=== PATIENT | female | born 1950 | race Caucasian/White ===

== ENCOUNTER 2017-03-02 09:00 | Inpatient (IN) | payer MEDICARE, OTHER ==
[~2017-03-02] VITALS: Ht 172.7 cm; Wt 81.6 kg
--- NOTE | ~2017-03-02 | PA ---
Unit #: [id number] #: [id number] Patient: TOBIAS SULTANA [id number] [facility] [address] [place] [address] [id number] I MR#: [id number] NAME: TOBIAS SULTANA ROOM: P1 Age: 66 Sex: F Admission Date: 03/02/2017 : 1950 Date of Assessment: 03/02/2017 Attending Physician: Naa Islas M.D. Admitting Physician: Naa Islas M.D. Primary Care Physician: Primary Care Physician No PSYCHIATRIC ASSESSMENT DATE OF SERVICE 03/02/2017. IDENTIFYING DATA Ms. Sultana is a 66-year-old disabled white female, who is a resident of [place], [place], and was self-referred to the hospital on a voluntary basis. CHIEF COMPLAINT "I've been taking way too much pain pills." HISTORY OF PRESENT ILLNESS Ms. Sultana is a 66-year-old white female, who was self-referred to the hospital wanting to get detox from opioids as she stated that she has been seeing her physician on an outpatient basis, who had her on five 30 mg pills a day and she was taking 150 mg of oxycodone a day and then they decided to cut it down all the way from 150 to 45 mg a day and she could not handle it "they did not tell me, I don't have any medication. I've been taking 15 mg of oxycodone for a year, I was on 30 mg five times a day. In January, they changed me from 30 to 15 mg every 8 hours, it was not strong enough and I took more than I should and that is why I'm out of it." The patient reports that she started taking the oxycodone after knee surgery and she was prescribed 30 mg four or five times a day after knee surgery for 2 years and was treated by her primary care physician. [facility] 5 to 6 years ago and was given 30 mg five times a day. In 01/2017, the Pain Clinic reduced her oxycodone to 15 mg every 8 hours, "I got to have something." The patient's confirmed the patient's story and stated that the [facility] Clinic stated that she had too much morphine in her system and although she does not take morphine, the [facility] Clinic would not give a reason for discontinuing her pain medication. However, she reports that she found her life revolving around chasing pain pills, particularly when they were cut down by the clinic and they started running out before time and realized that she has a problem and now she wants to get off them completely and does report some depression, anxiety, and irritability, but denies any suicidal ideations, intent, or plan. SUBSTANCE ABUSE HISTORY The patient reports history of prescription opioid addiction, but denies any other substance abuse. PAST PSYCHIATRIC HISTORY The patient has not had any prior inpatient or outpatient psychiatric treatment, and review of the medical records indicate that she is Unit #: [id number] #: [id number] Patient: TOBIAS SULTANA currently not active in any treatment program, is not seeing a psychiatrist, and is not taking any psychotropic medications. PAST MEDICAL HISTORY Hypertension, hypothyroidism, and diabetes mellitus. ALLERGIES Contrast dye. PERSONAL AND SOCIAL HISTORY A 66-year-old white female, who reports that she is and disabled and lives at home with her and has fairly decent social support system. MENTAL STATUS EXAMINATION An elderly white female, who was casually dressed with fair personal hygiene, appears to be in no acute distress or discomfort. She was awake and alert on interaction with intact orientation to time, place, and person. Her mood anxious and depressed with a congruent affect. Her speech was slow and goal directed. She denies any suicidal or homicidal ideations and also denies also any auditory or visual hallucinations. Her insight and judgment remain significantly impaired. DIAGNOSTIC IMPRESSION Psychiatric: Opioid dependence, moderate, in acute withdrawals and opioid-induced mood disorder. Medical: Hypertension, diabetes mellitus, hypothyroidism, and chronic pain. Stressors: Moderate psychosocial stressors. TREATMENT PLAN 1. The patient has presented with a history of substance abuse and dependence and has been decompensating and will need inpatient hospitalization for detoxification, safety, and stabilization. We will start her back on her home medications. We will adjust the medications and monitor response. 2. Safe, structured, and nourishing environment will be provided. ESTIMATED LENGTH OF STAY 5 to 7 days. ABILITY TO HELP SELF Limited. WILLINGNESS TO HELP SELF The patient appears to be willing to help self. STRENGTHS 1. Communicative. 2. Cooperative. PROBLEMS Chronic dysphoric symptoms. DISCHARGE CRITERIA This will be contingent upon the patient's ability to show resolution of her depression and anxiety and her ability to stay safe to herself, particularly after discharge from the hospital. Unit #: [id number] #: [id number] Patient: TOBIAS SULTANA Dictated by... Geoff Hurley/modl TD: 03/03/2017 23:20 JOB #: [id number] PSYCHIATRIC ASSESSMENT Page 1 of 1 X Naa Islas MD X PSYCHIATRIC ASSESSMENT
--- NOTE | ~2017-03-02 | CO ---
Unit #: [id number] #: [id number] Patient: TOBIAS SULTANA [id number] [facility] [address] [place] [address] [id number] MR#: [id number] NAME: TOBIAS SULTANA ROOM: [facility] Age: 66 Sex: F Admission Date: 03/02/2017 : 1950 Attending Physician: Naa Islas M.D. Primary Care Physician: Primary Care Physician No Consultation Date: 03/03/2017 CONSULTATION REPORT ORDERING PROVIDER Dr. Islas. REASON FOR CONSULT Pain. SUBJECTIVE The patient reports that she has a long history of both back and knee pain. She is at [facility], because of her addiction to oxycodone. She is requesting pain relief without using narcotic medication. She has used ibuprofen and Tylenol with some relief. OBJECTIVE Of note, the patient is both diabetic and hypertensive. There is a concern about kidney functioning with high doses of ibuprofen long-term. She is currently on gabapentin and has Tylenol ordered every 4 hours. ASSESSMENT Chronic pain. PLAN Continue the Tylenol and gabapentin and change ibuprofen to Mobic once daily. Continue to monitor. Dictated by... Yasir Cota/fariba TD: 03/04/2017 02:20 JOB #: [id number] CONSULTATION REPORT Page 1 of 1 X MATT MYERS APRN CONSULTATION REPORT
--- NOTE | ~2017-03-02 | PN ---
Unit #: [id number] #: [id number] Patient: TOBIAS DURAN [id number] [facility] [address] [place] [address] [id number] I MR#: [id number] NAME: TOBIAS DURAN ROOM: [facility] Age: 66 Sex: F Admission Date: 03/02/2017 : 1950 Attending Physician: Naa Islas M.D. Admitting Physician: Naa Islas M.D. Primary Care Physician: Primary Care Physician Lucy HANNAH NOTES DATE 03/05/2017 DISCUSSION Ms. Duran is a 66-year-old white female who was seen today and chart was reviewed and case was discussed with the staff. She has been anxious, withdrawn and rather seclusive to herself. Meanwhile, she has been cooperative with treatment recommendations as she has been taking the medications and tolerating them fairly well with no reported side effects. MENTAL STATUS EXAMINATION An elderly white female who was casually dressed with fair personal hygiene, appears to be in no acute distress or discomfort. She was awake and alert with impaired attention and concentration. Her mood was anxious with congruent affect. She denies any suicidal or homicidal ideations. Her insight and judgement remains slightly impaired. TREATMENT PLAN 1. We will continue her on her current treatment protocol. We will monitor her response to the medications and make further adjustments as needed. 2. We will continue to follow up. Dictated by... Geoff Hurley/filemon TD: 03/06/2017 03:49 JOB #: [id number] Unit #: [id number] #: [id number] Patient: TOBIAS DURAN PROGRESS NOTES Page 1 of 1 X Naa Islas MD PROGRESS NOTE
--- NOTE | ~2017-03-02 | PN ---
Unit #: [id number] #: [id number] Patient: TOBIAS DURAN [id number] [facility] [address] [place] [address] [id number] I MR#: [id number] NAME: TOBIAS DURAN ROOM: [facility] Age: 66 Sex: F Admission Date: 03/02/2017 : 1950 Attending Physician: Naa Islas M.D. Admitting Physician: Naa Islas M.D. Primary Care Physician: Primary Care Physician Lucy HANNAH NOTES DATE March 03, 2017 DISCUSSION Ms. Duran is a 66-year-old white female, with opiate dependence, who was seen today and chart was reviewed and the case was discussed with the staff. She has been anxious, withdrawn, and seclusive to herself and describes herself to be in distress and discomfort. Meanwhile, she has been cooperative with the treatment recommendations and she has been taking the medications and tolerating them fairly well with no reported side effects. MENTAL STATUS EXAMINATION An elderly white female, who was casually dressed with fair personal hygiene and appears to be in slight distress and discomfort. She was awake and alert with impaired attention and concentration. Her mood is anxious with a congruent affect. Her speech is slow and tangential. Her thought processes are disorganized with some looseness of associations and flight of ideas. Her insight and judgment remain significantly impaired. TREATMENT PLAN 1. We will continue her on her current medications and treatment protocol, and will monitor her response to the medications, and make further adjustments as needed. 2. We will continue to followup. Dictated by... Geoff Hurley/bret TD: 03/04/2017 09:12 JOB #: [id number] Unit #: [id number] #: [id number] Patient: TOBIAS DURAN PROGRESS NOTES Page 1 of 1 X Naa Islas MD PROGRESS NOTE
--- NOTE | ~2017-03-02 | DS ---
Unit #: [id number] #: [id number] Patient: TOBIAS SULTANA [id number] [facility] [address] [place] [address] [id number] I MR#: [id number] NAME: TOBIAS SULTANA ROOM: 79 Age: 66 Sex: F Admission Date: 03/02/2017 : 1950 Discharge Date: 03/06/2017 Attending Physician: Naa Islas M.D. Primary Care Physician: Primary Care Physician No DISCHARGE SUMMARY IDENTIFYING DATA Ms. Sultana is a 66-year-old , disabled, white female, who is a resident of [place], [place], and was self-referred to the hospital on voluntary basis with a chief complaint of "I've been taking too much pain pills." DISCHARGE DIAGNOSES Psychiatric: Opioid dependence, moderate and acute withdrawals; opioid-induced mood disorder. Medical: Hypertension, diabetes mellitus, hypothyroidism, chronic pain. Stressors: Mild psychosocial stressors. HISTORY OF PRESENT ILLNESS Please see initial psychiatric evaluation for details. PAST PSYCHIATRIC HISTORY Please see initial psychiatric evaluation for details. PAST MEDICAL HISTORY Please see initial psychiatric evaluation for details. HOSPITAL COURSE The patient [facility] and was oriented to the hospital environment. Routine p.r.n. medications were initiated, and she was started back on her home medications and detox protocol was initiated as well. She was seen to be showing rather poor insight into situation and poor motivation as she was constantly complaining of being in pain and making statements that she does not know how she is going to handle her pain without the pain medications; however, she was able to come out of the detox without any complications and then was rather pushing to leave and was denying any suicidal ideations, intent, or plan and as such, she was not meeting criteria for further inpatient psychiatric hospitalizations and as such, it was decided that she will be discharged home and will continue treatment on an outpatient basis. DISCHARGE MEDICATIONS None. DISCHARGE CONDITION Stable. PROGNOSIS Fair. Unit #: [id number] #: [id number] Patient: TOBIAS SULTANA Dictated by... Geoff Hurley/iselal TD: 03/06/2017 06:56 JOB #: [id number] DISCHARGE SUMMARY Page 1 of 1 X Naa Islas MD DISCHARGE SUMMARY
--- NOTE | ~2017-03-02 | PN ---
Unit #: [id number] #: [id number] Patient: TOBIAS DURAN [id number] [facility] [address] [place] [address] [id number] I MR#: [id number] NAME: TOBIAS DURAN ROOM: [facility] Age: 66 Sex: F Admission Date: 03/02/2017 : 1950 Attending Physician: Naa Islas M.D. Admitting Physician: Naa Islas M.D. Primary Care Physician: Primary Care Physician Lucy HANNAH NOTES DATE 03/04/2017 DISCUSSION Ms. Duran is a 66-year-old white female with opioid dependence who was seen today and chart was reviewed and case was discussed with the staff. She had a rough night with increasing pain, anxiety, restlessness. On approach this morning, the patient stated that she does not want to be here and that she wants to leave but that she knows that she needs to be and she has been taking the detox medication but does not feel that she is doing much better as she has been complaining of poor sleep, anxiety, restlessness, muscle aches and pains and feeling uncomfortable and describes herself to be in distress or discomfort though seems to be polite and pleasant and maintaining a positive attitude. MENTAL STATUS EXAMINATION An elderly white female who was casually dressed with fair personal hygiene, appears to be in no acute distress or discomfort. She was awake and alert with impaired attention and concentration. Her mood was anxious with a congruent affect. Her speech was slow and tangential. Her thought processes were disorganized with some looseness of associations. Her insight and judgement remains significantly impaired. TREATMENT PLAN 1. We will continue her on her current medications and treatment protocol. We will monitor her response to the medication and make further adjustments as needed. 2. We will continue to follow up. Dictated by... Geoff Hurley/filemon TD: 03/05/2017 04:24 JOB #: [id number] Unit #: [id number] #: [id number] Patient: TOBIAS DURAN BRIELLE NOTES Page 1 of 1 X Naa Islas MD PROGRESS NOTE
--- NOTE | ~2017-03-02 | HP ---
Unit #: [id number] #: [id number] Patient: TOBIAS SULTANA [id number] [place] [address] [id number] I MR#: [id number] NAME: TOBIAS SULTANA ROOM: P179 Age: 66 Sex: F Admission Date: 03/02/2017 : 1950 Attending Physician: Naa Islas M.D. Admitting Physician: aNa Islas M.D. Primary Care Physician: Primary Care Physician No HISTORY AND PHYSICAL HISTORY OF PRESENT ILLNESS The patient is a 66-year-old female admitted to [facility] on 03/02/2017 to withdrawal from oxycodone. PAST MEDICAL HISTORY 1. Diabetes. 2. Hypertension. 3. Back pain. 4. Knee pain. PAST SURGICAL HISTORY 1. Knee surgery. 2. Hysterectomy. 3. Tonsillectomy. SOCIAL HISTORY She is retired from [employer]. She lives with her . She smokes one pack of cigarettes daily. Uses oxycodone 30 mg five times per day. FAMILY MEDICAL HISTORY Noncontributory. ALLERGIES Iodine. CURRENT MEDICATIONS Please see list of home medications. REVIEW OF SYSTEMS CONSTITUTIONAL: No fever or chills. HEENT: Denies any sore throat, ear pain or runny nose. CARDIOVASCULAR: Denies chest pain, irregular heart rhythm or palpitations. CHEST: Denies shortness of breath or cough. No hemoptysis. GASTROINTESTINAL: Denies nausea, vomiting, diarrhea or chronic constipation. ENDOCRINE: Denies history of increased thirst or urination. No recent significant weight loss or gain. GENITOURINARY: Denies dysuria, frequency, or hematuria. SKIN: Denies any rashes. HEMATOLOGIC: Denies history of increased bleeding or bruising. MUSCULOSKELETAL: She complains of back and knee pain. NEUROLOGIC: Denies problems with vision or speech. No frequent, severe headaches. No numbness, tingling or weakness in any extremities. Denies Unit #: [id number] #: [id number] Patient: TOBIAS SULTANA loss of bladder or bowel control. PHYSICAL EXAM GENERAL: She is awake, alert and oriented in no acute distress. VITAL SIGNS: Temperature 98.3, heart rate 70, respiration 16, blood pressure 154/85. HEIGHT: 5'8". WEIGHT: 180 pounds. SKIN: Warm and dry without rash or lesion. HEENT: Normocephalic. TMs not viewed. Oral and nasal passages clear. Conjunctivae clear. PERRLA. EOMs intact. NECK: Supple without lymphadenopathy or thyromegaly. HEART: Regular rate and rhythm without murmur. LUNGS: Clear. ABDOMEN: Soft, nontender. : Not done. EXTREMITIES: No evidence of cyanosis, clubbing or edema. Moves all without focal deficit. NEUROLOGICAL: Grossly within normal limits. Cranial Nerves: II: Visual ladd are intact. III, IV AND : Extraocular movements are intact. Pupils are equal, round and reactive to light. V: Facial sensation is grossly normal. VII: Facial movements and expression are normal. VIII: Auditory acuity grossly intact. IX, X: Uvula is midline. Phonation is normal. XI: Patient shrugs shoulders and turns head normally. XII: Tongue protrudes in the midline. Sensory and Motor Function: Sensory and motor sensation is grossly normal. Motor: moves all extremities well. IMPRESSION 1. Psychiatric admission. 2. Diabetes. 3. Hypertension. 4. Back pain. 5. Knee pain. RECOMMENDATIONS Psychiatric per psychiatrist. MEDICAL: No contraindication to participate in facility activities. MEDICAL PROGNOSIS Fair. MEDICAL CONDITION Stable. Dictated by... Yasir Cota/filemon TD: 03/04/2017 01:44 Unit #: [id number] #: [id number] Patient: TOBIAS SULTANA JOB #: [id number] HISTORY AND PHYSICAL Page 1 of 1 X MATT MYERS APRN HISTORY AND PHYSICAL
[2017-03-03 13:57] LABS: BASOPHIL% 0.4 % (0-2.5); EOSINOPHIL# 0.1 X10e3 (0-0.7); EOSINOPHIL% 0.7 % (0.0-7.0); HEMATOCRIT 42.6 % (35.0-45.0); HEMOGLOBIN 14.8 gm/dL (12.0-16.0); LYMPHOCYTE# 2.2 X10e3 (1.0-3.5); MEAN CELL VOLUME 94.6 FL (83-96); MEAN CORPUSCULAR HEMOGLOBIN 32.9 PG (28-34); MEAN CORPUSCULAR HGB CONC 34.8 g/dL (30-36); MEAN PLATELET VOLUME 6.8 FL (6.5-11.5); MONOCYTE# 0.4 X10e3 (0-1.0); MONOCYTE% 4.7 % (3.0-12.0); NEUTROPHIL% 69.2 % (40-75); PLATELET COUNT 176 X10e3 (140-420); RED CELL DISTRIBUTION WIDTH 13.4 % (11.0-15.5); WHITE BLOOD COUNT 8.6 X10e3 (4.0-10.5)
[2017-03-03 14:14] LABS: DIFF IND NO
[2017-03-03 14:15] LABS: ALBUMIN SERUM 4.2 g/dL (3.5-5.0); BILIRUBIN,TOTAL 0.7 mg/dL (0.2-2.0); CALCIUM SERUM 9.8 mg/dL (8.4-10.2); CREATININE SERUM 0.6 mg/dL (0.6-1.4); GLOM FILT RATE Estimated 94.3 mL/min (>60); POTASSIUM 3.7 mmol/L (3.5-5.1); PROTEIN TOTAL SERUM 7.2 g/dL (6.0-8.3)
[2017-03-06 11:07] LABS: AMPHETAMINE NEG (NEG); BARBITURATES NEG (NEG); BENZODIAZEPINES NEG (NEG); COCAINE NEG (NEG); MARIJUANA NEG (NEG); OPIATES NEG (NEG); TRICYCLIC ANTIDEPRESSANTS NEG (NEG); U METHADONE NEG (NEG)
[2017-03-06 11:24] LABS: URINE APPEARANCE TURBID; URINE BILIRUBIN NEG (NEG); URINE BLOOD NEG (NEG); URINE COLOR DK YELLOW; URINE GLUCOSE NEG (NEG); URINE KETONE TRACE (NEG); URINE LEUKOCYTE ESTERASE NEG (NEG); URINE NITRATE NEG (NEG); URINE PROTEIN NEG (NEG); URINE UROBILINOGEN 0.2 MG/DL (NEG)
== END 2017-03-06 09:53 | DRG 897 ==
LOC: P1E 12:08
PROVIDERS: Psychiatry & Neurology Psychiatry
PROC: HZ2ZZZZ Detoxification Services for Substance Abuse Treatment (ICD-10-PCS; principal; 2017-03-02)
DX: F11.23 Opioid dependence with withdrawal (principal); F11.24 Opioid dependence with opioid-induced mood disorder; I10 Essential (primary) hypertension; E03.9 Hypothyroidism, unspecified; E11.9 Type 2 diabetes mellitus without complications; Z91.041 Radiographic dye allergy status; G89.29 Other chronic pain; Z90.710 Acquired absence of both cervix and uterus; F17.210 Nicotine dependence, cigarettes, uncomplicated
CPT/HCPCS: 80053; 80307; 81003; 82947; 85025; 86592